=== PATIENT | female | born 1975 | race African-American/Black ===

== ENCOUNTER 2023-08-09 15:03 | Emergency (ER) | payer OTHER ==
[~2023-08-09] VITALS: Ht 172.7 cm; Wt 90.0 kg
[2023-08-09 15:05] VITALS: BP 184/90; PULSE 89; RESP 16; TEMP 98.4; O2SAT 99
== END 2023-08-09 16:50 | disposition left against medical advice (07) ==
LOC: ER 15:03
DX: R11.2 Nausea with vomiting, unspecified (principal); Z53.21 Procedure and treatment not carried out due to patient leaving prior to being seen by health care provider